=== PATIENT | female | born 1930 | race Caucasian/White ===

== ENCOUNTER 2016-10-10 14:24 | Observation (INO) | payer MEDICARE ==
--- NOTE | 2016-10-10 14:37 | ERPHSYRPT ---
- History of Present Illness Time Seen by Provider: 10/10/16 14:33 Source: patient, EMS Exam Limitations: no limitations Physician History: The patient is an 85-year-old female in [place]-collar brought in by ambulance from [facility] where she fell backwards while looking at jewelry in a window from the side walk. She tried to break her fall with her arms but still fell back hitting her head on the sidewalk, causing some bleeding from the back of her head. She denies neck pain. She denies loss of consciousness. Her past medical history is significant for a femur fracture, hypothyroidism. Occurred: just prior to arrival Reason for Fall: lost balance, fell from standing pos Injuries/Pain Location: head Loss of Consciousness: no loss of consciousness Quality: aching Severity of Pain-Max: mild Severity of Pain-Current: mild Modifying Factors: Improves With: nothing Associated Symptoms (Fall): headache, No neck pain Allergies/Adverse Reactions: desloratadine [From Clarinex-D 12 HOUR] Allergy (Verified 07/27/13 03:31) penicillin G Allergy (Verified 07/27/13 03:31) phenobarbital Allergy (Verified 07/27/13 03:31) procaine HCl [From Novocain] Allergy (Verified 07/27/13 03:31) pseudoephedrine sulfate [From Clarinex-D 12 HOUR] Allergy (Verified 07/27/13 03: 31) Home Medications: Levothyroxine Sodium 25 Mcg [Synthroid 25 Mcg] 25 mcg PO DAILY 07/27/13 [ History] Aspirin 81 mg PO DAILY 10/10/16 [History] Cholecalciferol (Vitamin D3) [Vitamin D] 1,000 unit PO WEEKLY 10/10/16 [ History] Hx Tetanus, Diphtheria Vaccination/Date Given: No Hx Influenza Vaccination/Date Given: No Hx Pneumococcal Vaccination/Date Given: No - Review of Systems Constitutional: No Fever, No Chills Eyes: No Symptoms Ears, Nose, & Throat: No Symptoms Respiratory: No Cough, No Dyspnea Cardiac: No Chest Pain, No Edema, No Syncope Abdominal/Gastrointestinal: No Abdominal Pain, No Nausea, No Vomiting, No Diarrhea Genitourinary Symptoms: No Dysuria Musculoskeletal: Fall, Injury Skin: Skin Lesions Neurological: Headache Psychological: No Symptoms Endocrine: No Symptoms Hematologic/Lymphatic: No Symptoms Immunological/Allergic: No Symptoms All Other Systems: Reviewed and Negative - Past Medical History Pertinent Past Medical History: Yes Endocrine Medical History: Hypothyroidism Musculoskeletal History: Fractures Other Medical History: crystals in right ear - Past Surgical History Past Surgical History: Yes Musculoskeletal: Orthopedic Surgery Other Surgical History: ear. eye implants - Social History Smoking Status: Never smoker Exposure to second hand smoke: No Drug Use: none Patient Lives Alone: Yes - Female History Hx Now: No - Nursing Vital Signs Nursing Vital Signs: Initial Vital Signs Temperature 98.5 F Temperature Source Oral Pulse Rate 93 Respiratory Rate 18 Blood Pressure [] 168/84 Pain Intensity 3 - [place] Coma Score Best Eye Response ([place]): (4) open spontaneously Best Verbal Response ([place]): (5) oriented Best Motor Response ([place]): (6) obeys commands [place] Total: 15 - Physical Exam General Appearance: no apparent distress, alert Head Injury: active bleeding, contusions, tenderness (occiput) Eye Exam: PERRL/EOMI ENT Exam: airway nml Neck Exam: normal inspection, No tenderness Respiratory/Chest Exam: normal breath sounds, No chest tenderness, No respiratory distress Cardiovascular Exam: normal heart sounds, regular rate/rhythm Gastrointestinal Exam: soft, No tenderness, No distention, No guarding, No ecchymosis Rectal Exam: not done Back Exam: normal inspection, No vertebral tenderness Extremity Exam: normal inspection, normal range of motion, pelvis stable, No deformities Neurologic Exam: alert, oriented x 3, cooperative, sensation nml, No motor deficits Skin Exam: normal color, warm, dry, laceration SpO2 Interpretation: normal Procedures - Laceration/Wound Repair Occipital Wound Location: head Wound Length (cm): 0.5 Wound's Depth, Shape: superficial, linear Wound Explored: clean Irrigated: Yes Hibiclens Prep: Yes Wound Repaired With: [place] Number of Sutures: 1 Layer Closure?: No - CT Exams Head CT Interpretation: Tele-radiologist Report, No Fracture (Per DR Painting) Cervical Spine CT Interpretation: Negative, No Fracture (Per Dr Painting) Ordered Tests: Active Orders 24 hr Category Date Time Status CERVICAL SPINE WO CONTRAST [CT] Stat Exams 10/10/16 14:38 Completed HEAD WITHOUT CONTRAST [CT] Stat Exams 10/10/16 14:38 Completed - Progress Progress: unchanged Progress Note: 10/10/16 15:41 Pt is now feeling nauseated. Discussed with : Eugene Will see patient in: hospital (observation) Counseled pt/family regarding: diagnosis, rad results - Departure Time of Disposition: 15:57 Departure Disposition: Observation (per Majo Otto) Clinical Impression: Head injury, closed, with concussion Condition: Stable Critical Care Time: No
--- NOTE | 2016-10-10 15:21 | XRAY ---
Indication: Posterior head injury following fall. Multiple contiguous axial images obtained through the head without contrast. Comparison: July 27, 2013. Stable age-appropriate global atrophy and minimal periventricular degenerative micro-ischemia. Again no acute intracranial hemorrhage, abnormal extra-axial fluid collection, or mass effect. Fourth ventricle is midline without hydrocephalus. Bony calvarium intact. Small posterior scalp hematoma near the vertex. Visualized paranasal sinuses clear. Again previous left mastoidectomy. Impression: Posterior scalp hematoma. No underlying fracture or acute intracranial abnormalities. Stable atrophy and degenerative micro-ischemia. CT DI 51.85
--- NOTE | 2016-10-10 15:24 | XRAY ---
Indication: Posterior head injury following fall. Multiple contiguous axial images obtained through the cervical spine. Sagittal and coronal reformatted images obtained. Comparison: July 27, 2013. Again the right C1 lamina is absent either postoperative or developmental. No acute fracture, suspicious bony lesions, or spinal canal stenosis. Stable multilevel bilateral degenerative facet hypertrophy. Sagittal and coronal reformatted images demonstrates stable minimal anterolisthesis of C4 on C5 on C6. Disc spaces maintained. No acute fracture or jumped facet. Normal-appearing craniocervical junction. Visualized noncontrasted soft tissues unremarkable. Stable biapical fibrosis/scarring. Impression: Stable nonacute CT cervical spine again with chronic features. CT DI 44.90
[2016-10-10] MEDS ORDERED: ZOFRAN ODT 4 MG PO ONE (15:43)
[2016-10-10] MEDS ORDERED: ZOFRAN ODT 4 MG ONE (15:56)
[2016-10-10] MEDS ORDERED: MORPHINE SULFATE 2 MG INJ IV PRN (16:56)
[2016-10-10] MEDS ORDERED: Zofran 4 MG/2 ML VIAL IV PRN (16:56)
[2016-10-10] MEDS: TYLENOL 325 MG PO PRN (19:25)
[2016-10-11] MEDS: TYLENOL 325 MG PO PRN ×2 (04:36→11:53)
[2016-10-11 07:09] VITALS: O2SAT 97
--- NOTE | 2016-10-11 08:22 | PCM.HP ---
History of Present Illness - Chief Complaint Chief Complaint: concussion Date: 10/11/16 History of Present Illness: is a 85 year old female. who was walking in flip flop shoes in a store on the [facility] when she stepped back on an incline losing her balance falling backward and hitting the back of her head resulting in confusion, nausea and laceration with copious bleeding. She still has a headache this am and her eyes are bothering her. She is walking well now and tolerating po well. - Review of Systems Constitutional: No Fever, No Chills Eyes: Eye Redness, Itchy, Foreign Body Sensation Ears, Nose, & Throat: No Symptoms, Sinus Drainage Respiratory: No Cough, No Short Of Breath Cardiac: No Chest Pain, No Edema, No Syncope Abdominal/Gastrointestinal: No Abdominal Pain, No Nausea, No Vomiting, No Diarrhea Genitourinary Symptoms: No Dysuria Musculoskeletal: No Back Pain, No Neck Pain Skin: No Rash Neurological: Headache, No Dizziness, No Focal Weakness, No Sensory Changes Psychological: No Symptoms Endocrine: No Symptoms Hematologic/Lymphatic: No Symptoms Immunological/Allergic: No Symptoms Medications & Allergies Home Medications: Home Medication List Levothyroxine Sodium 25 Mcg [Synthroid 25 Mcg] 25 mcg PO DAILY 07/27/13 [ History Confirmed 10/10/16] Aspirin 81 mg PO DAILY 10/10/16 [History Confirmed 10/10/16] Cholecalciferol (Vitamin D3) [Vitamin D] 1,000 unit PO WEEKLY 10/10/16 [ History Confirmed 10/10/16] Dextran 70/Hypromellose [Artificial Tears Eye Drops] 15 ml OP QID PRN PRN [History Confirmed 10/10/16] [place]-3/Dha/Epa/Fish Oil [Fish Oil 1,600 mg/5 ml Liquid] 5 ml PO DAILY 10/10/16 [History Confirmed 10/10/16] Allergies/Adverse Reactions: Allergies Allergy/AdvReac Type Severity Reaction Status Date / Time desloratadine Allergy Verified 10/10/16 16:59 [From Clarinex-D 12 HOUR] penicillin G Allergy Verified 10/10/16 16:59 phenobarbital Allergy Verified 10/10/16 16:59 procaine HCl [From Novocain] Allergy Verified 05/15/17 16:59 pseudoephedrine sulfate Allergy Verified 10/10/16 16:59 [From Clarinex-D 12 HOUR] - Past Medical History Past Medical History: Yes Neurological History: No Pertinent History ENT History: Cataracts Cardiac History: No Pertinent History Respiratory History: No Pertinent History Endocrine Medical History: Hypothyroidism Musculoskelatal History: Fractures GI Medical History: Irritable Bowel History: No Pertinent History Pyscho-Social History: No Pertinent History Reproductive Disorders: No Pertinent History Comment: crystals in right ear - Female History Are you now?: No - Past Surgical History Past Surgical History: Yes Neuro Surgical History: No Pertinent History Cardiac History: No Pertinent History Respiratory Surgery: No Pertinent History GI Surgical History: No Pertinent History Genitourinary Surgical Hx: No Pertinent History Musculskeletal Surgical Hx: Orthopedic Surgery Female Surgical History: No Pertinent History Other Surgical History: ear. eye implants. tibia/fibia - Social History Smoking Status: Never smoker Exposure to second hand smoke: No Alcohol: None Drug Use: none - Physical Exam Vital Signs: Vital Signs - 24 hr Temp Pulse Resp BP Pulse Ox 10/11/16 07:09 97.9 F 73 18 145/63 97 10/11/16 05:22 165/72 10/11/16 04:00 97.1 F 71 19 191/82 100 10/11/16 00:00 98.2 F 70 16 128/65 100 10/10/16 19:59 97.7 F 73 20 188/74 93 L 10/10/16 17:09 97.7 F 73 20 182/79 93 L 10/10/16 16:15 74 18 154/82 96 10/10/16 14:25 98.5 F 93 H 18 168/84 96 General Appearance: no apparent distress, alert Neurologic Exam: alert, oriented x 3, cooperative, normal mood/affect, nml cerebellar function, nml station & gait, sensation nml, No motor deficits Eye Exam: PERRL/EOMI, eyes nml inspection Ears, Nose, Throat Exam: normal ENT inspection, TMs normal, pharynx normal, moist mucous membranes Neck Exam: normal inspection, non-tender, supple, full range of motion Respiratory Exam: normal breath sounds, lungs clear, No respiratory distress Cardiovascular Exam: regular rate/rhythm, normal heart sounds, normal peripheral pulses Gastrointestinal/Abdomen Exam: soft, normal bowel sounds, No tenderness, No mass Back Exam: normal inspection, normal range of motion, No CVA tenderness, No vertebral tenderness Extremity Exam: normal inspection, normal range of motion, pelvis stable Skin Exam: normal color, warm, dry, other (clean dry laceration with 1 staple in the posterior scalp), No rash Lymphatic Exam: No adenopathy Assessment/Plan (1) Head injury, closed, with concussion Status: Acute Qualifiers: Encounter type: initial encounter Assessment & Plan: she was observed as she lives alone and was feeling nauseated and severe headache after the fall. she has done well overnight and is walking and eating well with no difficulty will d/c to home f/u in 1 week for staple removal discussed concussion precautions Code(s): S06.0X9A - CONCUSSION W LOSS OF CONSCIOUSNESS OF UNSP DURATION, INIT (2) Scalp laceration Status: Acute Qualifiers: Encounter type: initial encounter Qualified Code(s): S01.01XA - Laceration without foreign body of scalp, initial encounter
--- NOTE | 2016-10-11 08:23 | PCM.DCORD ---
- Discharge Discharge Date: 10/11/16 Disposition: Home, Self-Care Condition: Stable Prescriptions: Continue Levothyroxine Sodium 25 Mcg [Synthroid 25 Mcg] 25 mcg PO DAILY Aspirin 81 mg PO DAILY Cholecalciferol (Vitamin D3) [Vitamin D] 1,000 unit PO WEEKLY Dextran 70/Hypromellose [Artificial Tears Eye Drops] 15 ml OP QID PRN PRN PRN Reason: Allergies [place]-3/Dha/Epa/Fish Oil [Fish Oil 1,600 mg/5 ml Liquid] 5 ml PO DAILY Follow up with: ADELINA KUO [Primary Care Provider] -
[2016-10-11] MEDS ORDERED: Artificial Tears 15 ML OP PRN (08:24)
[2016-10-11] MEDS ORDERED: NON-FORMULARY ITEM (Aspirin [Aspirin] 81 MG) PO SCH (10:00)
[2016-10-11] MEDS ORDERED: VITAMIN D PO SCH (10:00)
[2016-10-11] MEDS ORDERED: SYNTHROID 25 MCG PO SCH (10:00)
[2016-10-11] MEDS ORDERED: ECOTRIN 81 MG PO SCH (10:00)
[2016-10-11 11:21] VITALS: BP 142/84; PULSE 86
== END 2016-10-11 12:25 | disposition home or self-care (01) ==
LOC: ED 14:24 → MED SURG 16:50
PROVIDERS: ADMIT Family Medicine; ATTEND Family Medicine
DX: S06.0X9A Concussion with loss of consciousness of unspecified duration, initial encounter (principal); S01.01XA Laceration without foreign body of scalp, initial encounter; W01.198A Fall on same level from slipping, tripping and stumbling with subsequent striking against other object, initial encounter; Y93.89 Activity, other specified; Y92.512 Supermarket, store or market as the place of occurrence of the external cause; Y99.8 Other external cause status
CPT/HCPCS: 36000; 70450; 72125; 99285; G0378; Q0162; A9270-GY

== ENCOUNTER 2016-10-29 11:31 | Emergency (ER) | payer MEDICARE, OTHER ==
--- NOTE | 2016-10-29 11:53 | ERPHSYRPT ---
- History of Present Illness Time Seen by Provider: 10/29/16 11:48 Source: patient Exam Limitations: no limitations Patient Subjective Stated Complaint: congestion Triage Nursing Assessment: states fell several weeks and for past several days has had congestion to lt nasal area. and redness noted to lt sclera. states has vision changes 'normal but both eyes sometimes have trouble seeing' post. head tenderness. denies no new injury. alert/oriented. skin warm and dry Physician History: The patient is an 86-year-old female who has a bloodshot eye for the past week. Her eye stings. She is been increasingly unsteady on her feet since falling and hitting her head October 10. Her blood pressure is been slightly elevated also since that time. She denies any other problems. Her past medical history significant for a recent fall causing head trauma, hypothyroidism. Timing/Duration: week(s) (1) Location: left eye Severity: moderate Apparent Injury: no Associated Symptoms: itching, redness Chemical Exposure: No Trauma: Yes (head injury October 10) [place]anning [employer] Exposure: No Allergies/Adverse Reactions: desloratadine [From Clarinex-D 12 HOUR] Allergy (Verified 10/29/16 11:48) penicillin G Allergy (Verified 10/29/16 11:48) phenobarbital Allergy (Verified 10/29/16 11:48) procaine HCl [From Novocain] Allergy (Verified 10/29/16 11:48) pseudoephedrine sulfate [From Clarinex-D 12 HOUR] Allergy (Verified 10/29/16 11: 48) Home Medications: Levothyroxine Sodium 25 Mcg [Synthroid 25 Mcg] 25 mcg PO DAILY 07/27/13 [ History] Aspirin 81 mg PO DAILY 10/10/16 [History] Cholecalciferol (Vitamin D3) [Vitamin D] 1,000 unit PO WEEKLY 10/10/16 [ History] Dextran 70/Hypromellose [Artificial Tears Eye Drops] 15 ml OP QID PRN PRN [History] [place]-3/Dha/Epa/Fish Oil [Fish Oil 1,600 mg/5 ml Liquid] 5 ml PO DAILY 10/10/16 [History] Hx Tetanus, Diphtheria Vaccination/Date Given: Yes Hx Influenza Vaccination/Date Given: No Hx Pneumococcal Vaccination/Date Given: No Immunizations Up to Date: Yes - Review of Systems Constitutional: No Fever, No Chills Eyes: Eye Redness Ears, Nose, & Throat: No Symptoms Respiratory: No Cough, No Dyspnea Cardiac: No Chest Pain, No Edema, No Syncope Abdominal/Gastrointestinal: No Abdominal Pain, No Nausea, No Vomiting, No Diarrhea Genitourinary Symptoms: No Dysuria Musculoskeletal: No Back Pain, No Neck Pain Skin: No Rash Neurological: Other (Unsteady on feet) Psychological: No Symptoms Endocrine: No Symptoms Hematologic/Lymphatic: No Symptoms Immunological/Allergic: No Symptoms All Other Systems: Reviewed and Negative - Past Medical History Pertinent Past Medical History: Yes Neurological History: No Pertinent History ENT History: Cataracts Cardiac History: No Pertinent History Respiratory History: No Pertinent History Endocrine Medical History: Hypothyroidism Musculoskeletal History: Fractures GI Medical History: Irritable Bowel History: No Pertinent History Psycho-Social History: No Pertinent History Female Reproductive Disorders: No Pertinent History Other Medical History: slight [place]--lt ear worse - Past Surgical History Past Surgical History: Yes Neuro Surgical History: No Pertinent History Cardiac: No Pertinent History Respiratory: No Pertinent History Gastrointestinal: No Pertinent History Genitourinary: No Pertinent History Musculoskeletal: Orthopedic Surgery Female Surgical History: No Pertinent History Other Surgical History: ear. eye implants. tibia/fibia - Social History Smoking Status: Never smoker Exposure to second hand smoke: No Drug Use: none Patient Lives Alone: No - Female History Hx Now: No - Nursing Vital Signs Nursing Vital Signs: Initial Vital Signs Temperature 97.1 F Temperature Source Oral Pulse Rate 86 Respiratory Rate 18 Blood Pressure [Right Arm] 169/67 Pain Intensity 2 - Physical Exam General Appearance: no apparent distress Eye Exam: right eye: normal inspection, left eye: conjunctival hemorrhage, bilateral eye: PERRL Ears, Nose, Throat Exam: normal ENT inspection Neck Exam: normal inspection Respiratory Exam: normal breath sounds Cardiovascular Exam: regular rate/rhythm Gastrointestinal Exam: soft Extremity Exam: normal inspection Neurologic: alert Skin Exam: normal color SpO2 Interpretation: normal SpO2: 96 Oxygen Delivery: Room Air - CT Exams Head CT Interpretation: Negative (stable non acute senile brain per Dr Painting.), Tele- radiologist Report Ordered Tests: Active Orders 24 hr Category Date Time Status Visual Acuity STAT Care 10/29/16 11:58 Active HEAD WITHOUT CONTRAST [CT] Stat Exams 10/29/16 11:54 Taken - Progress Progress: unchanged Counseled pt/family regarding: diagnosis, rad results - Departure Time of Disposition: 12:41 Departure Disposition: Home Clinical Impression: Conjunctival hemorrhage of left eye Condition: Stable Critical Care Time: No Additional Instructions: You have a hemorrhage of the conjunctiva in her left eye. This will resolve. If it does not improve within 2 or 3 more days, please see an welfare supervisor. The head CT was unchanged from the previous head CT done in September. Please follow- up with your family doctor or a neurologist for further evaluation of your recent unsteadiness.
[2016-10-29 14:01] VITALS: BP 180/80; PULSE 88; O2SAT 97
--- NOTE | 2016-10-29 16:05 | XRAY ---
Indication: Left eye pain following injury October 10. Multiple contiguous axial images obtained through the head without contrast. Comparison: October 10, 2016. Stable age-appropriate global atrophy and minimal periventricular degenerative micro-ischemia. Again no acute intracranial hemorrhage, abnormal extra-axial fluid collection, or mass effect. Fourth ventricle is midline without hydrocephalus. Bony calvarium intact. Orbits including roof, [place], and floors intact. Visualized paranasal sinuses clear. Again previous left mastoidectomy. Impression: Stable nonacute senile brain. CT DI 51.70
== END 2016-10-29 14:01 | disposition home or self-care (01) ==
LOC: ED 11:31
DX: H11.32 Conjunctival hemorrhage, left eye (principal); S00.93XA Contusion of unspecified part of head, initial encounter; W19.XXXA Unspecified fall, initial encounter
CPT/HCPCS: 70450; 99283; 99284

== ENCOUNTER 2018-10-24 14:09 | Observation (INO) | payer MEDICARE, OTHER ==
[2018-10-24 14:49] LABS: BASOPHIL % 0.4 % (0.0-0.4); Basophil (Absolute #) 0.03 (0-0.4); Eosinophil % 2.3 % (0.00-5.0); Eosinophil (Absolute #) 0.19 (0-0.5); Granulocyte Absolute (ANC) 4.97 (1.4-6.9); Granulocytes % 59.5 % (36.0-66.0); Hematocrit 41.6 % (35-47); Lymphocyte (Absolute #) 2.49 (1.0-4.6); Lymphocytes % 29.9 % (24.0-44.0); Mean Corpuscular Hemoglobin 30.3 pg (26-32); Mean Corpuscular Hgb Concent. 33.7 g/dl (32-36); Mean Platelet Volume 10.8 fl (6-9.5); Monocyte (Absolute #) 0.66 (0.0-1.3); Monocytes % 7.9 % (0.0-12.0); Platelet Count 242 K/mm3 (150-450); Red Blood Count 4.62 M/mm3 (4.1-5.4); White Blood Count 8.3 K/mm3 (4.0-10.5)
--- NOTE | 2018-10-24 14:51 | ERPHSYRPT ---
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 Arrives with complaint that she had a sensation where she didn't know that her right arm was there she states she's not had any problems moving or speaking she does state that she is felt like her arm was and there She apparently is seeing [employer] this morning secondary to problems with her right ear but neglected to tell her what was going on she states she had a second episode of where she felt like she didn't know her right arm was there yesterday as well as around noon today she is unsure of the duration. She states she sometimes has trouble getting her words out. Currently the patient is very verbose she is alert oriented x3 and she is not having any problems moving anything. Past medical history includes cataracts, hypothyroidism, fractures, irritable bowel, hard of hearing Past surgical history includes tumor removed in her ear (right), IM plan, tibia- fibula Timing/Duration: yesterday Severity: moderate Modifying Factors: Improves With: nothing Associated Symptoms: other (had period of time when she could not feel her right arm and was not sure was there and trouble getting her words out around noon), No nausea, No vomiting, No abdominal pain, No shortness of breath, No heartburn, No diaphoresis, No cough, No chills, No chest pain, No fever, No headaches, No loss of appetite, No malaise, No rash, No syncope, No seizure, No weakness Allergies/Adverse Reactions: almond Allergy (Verified 10/24/18 15:18) chlorpheniramine [From Chlor-Trimeton] Allergy (Verified 10/24/18 15:18) desloratadine [From Clarinex-D 12 HOUR] Allergy (Verified 10/29/16 11:48) erythromycin base Allergy (Verified 10/24/18 15:18) nickel Allergy (Verified 10/24/18 15:18) penicillin G Allergy (Verified 10/29/16 11:48) phenobarbital Allergy (Verified 10/29/16 11:48) pistachio nut Allergy (Verified 10/24/18 15:18) prednisone Allergy (Verified 10/24/18 15:18) procaine HCl [From Novocain] Allergy (Verified 10/29/16 11:48) pseudoephedrine sulfate [From Clarinex-D 12 HOUR] Allergy (Verified 10/29/16 11: 48) Sulfa (Sulfonamide Antibiotics) Allergy (Verified 10/24/18 15:18) Home Medications: Levothyroxine Sodium 25 Mcg [Synthroid 25 Mcg] 25 mcg PO DAILY 07/27/13 [ History] Aspirin 81 mg PO DAILY 10/10/16 [History] Cholecalciferol (Vitamin D3) [Vitamin D] 1,000 unit PO WEEKLY 10/10/16 [ History] Dextran 70/Hypromellose [Artificial Tears Eye Drops] 15 ml OP QID PRN PRN [History] [place]-3/Dha/Epa/Fish Oil [Fish Oil 1,600 mg/5 ml Liquid] 5 ml PO DAILY 10/10/16 [History] Hx Tetanus, Diphtheria Vaccination/Date Given: Yes Hx Influenza Vaccination/Date Given: No Hx Pneumococcal Vaccination/Date Given: No - Review of Systems Eyes: No Symptoms Ears, Nose, & Throat: No Symptoms Respiratory: No Cough, No Dyspnea Cardiac: No Chest Pain, No Edema, No Syncope Abdominal/Gastrointestinal: No Abdominal Pain, No Nausea, No Vomiting, No Diarrhea Genitourinary Symptoms: No Dysuria Musculoskeletal: No Back Pain, No Neck Pain Skin: No Rash Neurological: Other (period of timewhen patient could not get her words out and felt like she was having numbness and unaware of her right arm around noon today ) Psychological: No Symptoms Endocrine: No Symptoms All Other Systems: Reviewed and Negative - Past Medical History Pertinent Past Medical History: Yes Neurological History: No Pertinent History ENT History: Cataracts Cardiac History: No Pertinent History Respiratory History: No Pertinent History Endocrine Medical History: Hypothyroidism Musculoskeletal History: Fractures GI Medical History: Irritable Bowel History: No Pertinent History Psycho-Social History: No Pertinent History Female Reproductive Disorders: No Pertinent History Other Medical History: slight [place]--lt ear worse - Past Surgical History Past Surgical History: Yes Neuro Surgical History: No Pertinent History Cardiac: No Pertinent History Respiratory: No Pertinent History Gastrointestinal: No Pertinent History Genitourinary: No Pertinent History Musculoskeletal: Orthopedic Surgery Female Surgical History: No Pertinent History Other Surgical History: ear. eye implants. tibia/fibia - Social History Smoking Status: Never smoker Exposure to second hand smoke: No Drug Use: none Patient Lives Alone: No - Nursing Vital Signs Nursing Vital Signs: Initial Vital Signs Temperature 98.1 F 10/24/18 14:53 Pulse Rate 68 10/24/18 14:53 Respiratory Rate 16 10/24/18 14:53 Blood Pressure 182/75 10/24/18 14:53 O2 Sat by Pulse Oximetry 96 10/24/18 14:53 Pain Scale Pain Intensity 3 - Physical Exam General Appearance: no apparent distress, alert Eye Exam: PERRL/EOMI, eyes nml inspection Ears, Nose, Throat Exam: normal ENT inspection, TMs normal, pharynx normal, moist mucous membranes Neck Exam: normal inspection, non-tender, supple, full range of motion Respiratory Exam: normal breath sounds, lungs clear, No respiratory distress Cardiovascular Exam: regular rate/rhythm, normal heart sounds, normal peripheral pulses, capillary refill <2 sec Gastrointestinal/Abdomen Exam: soft, normal bowel sounds, No tenderness, No mass Back Exam: normal inspection, normal range of motion, No CVA tenderness, No vertebral tenderness Extremity Exam: normal inspection, normal range of motion, pelvis stable Neurologic Exam: alert, oriented x 3, cooperative, sheet tailer II-XII nml as tested, normal mood/affect, nml cerebellar function, nml station & gait, sensation nml, other (patient alert, oriented x3, cranial nerves II through XII intact, normal speech, normal finger to nose, machine stapler equal and symmetrical 5 over 5, no pronator drift, no facial droop, GCS equals 15,, full range of motion all extremities, sensation intact to all extremities), No motor deficits, No sensory deficit, No disoriented, No confusion, No agitation Skin Exam: normal color, warm, dry, No rash Lymphatic Exam: No adenopathy SpO2 Interpretation: normal - Course Nursing assessment & vital signs reviewed: Yes EKG Interpreted by Me: RATE (68 bpm), NORMAL AXIS, Other (EKG: Sinus arrhythmia , 68 beats per minute, normal axis, no acute ST or T wave changes) - Radiology Exams Chest X-ray Interpretation: Discussed w/ radiologist (chest x-ray: Impression: Stable nonacute chest with chronic features) - CT Exams Head CT Interpretation: Discussed w/radiologist (head CT: Impression: 1. Stable nonacute senile brain. Followup CT or MRI may yield further information if she remains further clinical concern.. 2. Stable left mastoidectomy with opacification. 3. New partial opacification of right mastoid air cells presumed inflammatory) Ordered Tests: Active Orders 24 hr Category Date Time Status Log Preparer STAT Care 10/24/18 14:37 Active EKG-ER Only STAT Care 10/24/18 14:37 Active IV Insertion STAT Care 10/24/18 14:37 Active NPO (ED) STAT Care 10/24/18 14:37 Active CHEST 1 VIEW (PORTABLE) Stat Exams 10/24/18 14:37 Completed HEAD WITHOUT CONTRAST [CT] Stat Exams 10/24/18 14:37 Completed BMP Stat Lab 10/24/18 14:37 Completed CBC W DIFF Stat Lab 10/24/18 14:37 Completed PROTIME WITH INR Stat Lab 10/24/18 14:37 Completed PTT Stat Lab 10/24/18 14:37 Completed TROPONIN Q3H Lab 10/24/18 14:37 Completed TROPONIN Q3H Lab 10/24/18 17:45 Ordered TROPONIN Q3H Lab 10/24/18 20:45 Ordered TROPONIN Q3H Lab 10/24/18 23:45 Ordered TROPONIN Q3H Lab 10/25/18 02:45 Ordered UA W/RFX UR CULTURE Stat Lab 10/24/18 15:10 Completed Medication Summary Generic Name Dose Route Start Last Admin Trade Name Freq PRN Reason Stop Dose Admin Aspirin 324 mg 10/24/18 15:41 Baby Aspirin 81 Mg Chew PO 10/24/18 15:42 STAT ONE Lab/Rad Data: Laboratory Result Diagrams 10/24/18 14:37 10/24/18 14:37 Laboratory Results 10/24/18 10/24/18 10/24/18 Range/Units 15:10 14:37 14:37 WBC (4.0-10.5) K/mm3 RBC (4.1-5.4) M/mm3 Hgb (12.0-16.0) gm/dl Hct (35-47) % MCV (78-100) fl MCH (26-32) pg MCHC (32-36) g/dl RDW (11.5-14.0) % Plt Count (150-450) K/mm3 MPV (6-9.5) fl Gran % (36.0-66.0) % Eos # (Auto) (0-0.5) Absolute Lymphs (auto) (1.0-4.6) Absolute Monos (auto) (0.0-1.3) Lymphocytes % (24.0-44.0) % Monocytes % (0.0-12.0) % Eosinophils % (0.00-5.0) % Basophils % (0.0-0.4) % Absolute Granulocytes (1.4-6.9) Basophils # (0-0.4) PT 11.7 (9.95-12.35) SECONDS INR 1.01 (0.8-3.0) APTT 36.2 (25.3-37.0) SECONDS Sodium (137-145) mmol/L Potassium (3.5-5.1) mmol/L Chloride (98-107) mmol/L Carbon Dioxide (22-30) mmol/L Anion Gap (5-15) MEQ/L BUN (7-17) mg/dL Creatinine (0.52-1.04) mg/dL Estimated GFR ML/MIN Glucose (74-106) mg/dL Calcium (8.4-10.2) mg/dL Troponin I < 0.012 (0.000-0.034) ng/mL Urine Color YELLOW (YELLOW) Urine Appearance CLEAR (CLEAR) Urine pH 6.0 (5-6) Ur Specific [place] 1.012 (1.005-1.025) Urine Protein NEGATIVE (Negative) Urine Ketones NEGATIVE (NEGATIVE) Urine Blood NEGATIVE (0-5) Uche/ul Urine Nitrite NEGATIVE (NEGATIVE) Urine Bilirubin NEGATIVE (NEGATIVE) Urine Urobilinogen NEGATIVE (0-1) mg/dL Ur Leukocyte Esterase NEGATIVE (NEGATIVE) Urine WBC (Auto) 3-5 (0-5) /HPF Urine RBC (Auto) NONE (0-2) /HPF U Epithel Cells (Auto) NONE (FEW) /HPF Urine Bacteria (Auto) NONE (NEGATIVE) /HPF Urine Culture Reflexed NO (NO) Urine Glucose NEGATIVE (NEGATIVE) mg/dL 10/24/18 10/24/18 Range/Units 14:37 14:37 WBC 8.3 (4.0-10.5) K/mm3 RBC 4.62 (4.1-5.4) M/mm3 Hgb 14.0 (12.0-16.0) gm/dl Hct 41.6 (35-47) % MCV 90.0 (78-100) fl MCH 30.3 (26-32) pg MCHC 33.7 (32-36) g/dl RDW 14.0 (11.5-14.0) % Plt Count 242 (150-450) K/mm3 MPV 10.8 H (6-9.5) fl Gran % 59.5 (36.0-66.0) % Eos # (Auto) 0.19 (0-0.5) Absolute Lymphs (auto) 2.49 (1.0-4.6) Absolute Monos (auto) 0.66 (0.0-1.3) Lymphocytes % 29.9 (24.0-44.0) % Monocytes % 7.9 (0.0-12.0) % Eosinophils % 2.3 (0.00-5.0) % Basophils % 0.4 (0.0-0.4) % Absolute Granulocytes 4.97 (1.4-6.9) Basophils # 0.03 (0-0.4) PT (9.95-12.35) SECONDS INR (0.8-3.0) APTT (25.3-37.0) SECONDS Sodium 139 (137-145) mmol/L Potassium 4.3 (3.5-5.1) mmol/L Chloride 105 (98-107) mmol/L Carbon Dioxide 24 (22-30) mmol/L Anion Gap 13.9 (5-15) MEQ/L BUN 26 H (7-17) mg/dL Creatinine 1.11 H (0.52-1.04) mg/dL Estimated GFR 49.3 ML/MIN Glucose 99 (74-106) mg/dL Calcium 10.0 (8.4-10.2) mg/dL Troponin I (0.000-0.034) ng/mL Urine Color (YELLOW) Urine Appearance (CLEAR) Urine pH (5-6) Ur Specific [place] (1.005-1.025) Urine Protein (Negative) Urine Ketones (NEGATIVE) Urine Blood (0-5) Uche/ul Urine Nitrite (NEGATIVE) Urine Bilirubin (NEGATIVE) Urine Urobilinogen (0-1) mg/dL Ur Leukocyte Esterase (NEGATIVE) Urine WBC (Auto) (0-5) /HPF Urine RBC (Auto) (0-2) /HPF U Epithel Cells (Auto) (FEW) /HPF Urine Bacteria (Auto) (NEGATIVE) /HPF Urine Culture Reflexed (NO) Urine Glucose (NEGATIVE) mg/dL - Progress Progress: improved Progress Note: 10/24/18 15:45 This is a 87-year-old white female who arrives with complaint of sensation as if her right arm was not there which occurred yesterday at noon occurred today at noon again she states that she had some problems getting her words out. She states that she was seen by Liliana Ramos today for her problems however she neglected to tell the patient of her symptoms she had yesterday. On arrival patient is alert oriented x3 she is in no acute distress vitals are stable. EKG sinus arrhythmia at 60 beats per minute normal axis no acute ST or T wave changes are noted chest x-ray stable nonacute chest with chronic feature CT of the head remarkable for stable nonacute senile brain, stable left mastoidectomy with opacification and new partial opacification of the right mastoid air cells presumed inflammatory Patient with a normal neurologic exam speech is very clear and patient is very verbose she has no focal neurologic deficits. Patient's CBC CMP are within normal limits. I've discussed the case with Dr. Albright who is sales consultant insurance for Dr. Brenner. Will go ahead and place patient on aspirin [address] her on observation telemetry. With every 4 hour neurologic checks. Impression TIA. - Departure Departure Disposition: Observation Clinical Impression: TIA (transient ischemic attack) Condition: Fair Critical Care Time: No Referrals: ADELINA RAMOS [Primary Care Provider] -
[2018-10-24 14:56] LABS: INR 1.01 (0.8-3.0); PROTIME 11.7 SECONDS (9.95-12.35)
[2018-10-24 14:58] LABS: PTT 36.2 SECONDS (25.3-37.0)
[2018-10-24 15:00] LABS: ANION GAP 13.9 MEQ/L (5-15); Creatinine 1 1.11 mg/dL (0.52-1.04); Potassium 4.3 mmol/L (3.5-5.1)
--- NOTE | 2018-10-24 15:14 | XRAY ---
Indication: Right facial numbness. Multiple contiguous axial images obtained through the head without contrast. Comparison: October 29, 2016. Stable age-appropriate global atrophy and minimal periventricular degenerative micro-ischemia bilaterally. No acute intracranial hemorrhage, abnormal extra-axial fluid collection, or mass effect. Fourth ventricle is midline without hydrocephalus. Wu-white matter differentiation preserved. Bony calvarium intact. Again left mastoidectomy with opacification of the remnant mastoid air cells. There is now partial opacification of the right mastoid air cells. Impression: 1. Stable nonacute senile brain. Follow-up CT or MRI may yield further information if there remains further clinical concern. 2. Stable left mastoidectomy with opacification. 3. New partial opacification of the right mastoid air cells presumed inflammatory. CT DI 70.00
[2018-10-24 15:16] LABS: Appearance CLEAR (CLEAR); Bilirubin NEGATIVE (NEGATIVE); Blood NEGATIVE Ery/ul (0-5); Glucose NEGATIVE (NEGATIVE); Ketones NEGATIVE (NEGATIVE); Leukocyte Esterase NEGATIVE (NEGATIVE); Nitrite NEGATIVE (NEGATIVE); Protein,Urine Dip NEGATIVE (Negative); Specific Gravity 1.012 (1.005-1.025); Urobilinogen NEGATIVE mg/dL (0-1)
--- NOTE | 2018-10-24 15:18 | XRAY ---
Indication: Numbness. Comparison: August 14, 2018. Portable chest remains clear. Heart is not enlarged again with arteriosclerotic and tortuous aorta. Bony thorax intact again with osteopenia and degenerative changes. Impression: Stable nonacute chest with chronic features.
[2018-10-24] MEDS ORDERED: BABY ASPIRIN 81 MG CHEW PO ONE (15:41)
[2018-10-24] MEDS ORDERED: BABY ASPIRIN 81 MG CHEW ONE (15:45)
[2018-10-24] MEDS ORDERED: DEXTRAN OP PRN (17:18)
[2018-10-24] MEDS ORDERED: HYPROMELLOSE OP PRN (17:18)
[2018-10-24] MEDS ORDERED: Artificial Tears 15 ML OP PRN (17:22)
[2018-10-24] MEDS: SYNTHROID 25 MCG PO SCH (17:44)
[2018-10-24] MEDS: FISH OIL 1,000 MG CAPSULE PO SCH (17:45)
--- NOTE | 2018-10-24 17:54 | PCM.NOTE ---
Date and Time: 10/24/181745 Subjective Assessment: Patient is stable since admit from ER . Neuro checks are negative. 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 She gives a Hx of head trauma 2013 when she fell down 11 steps backwards and hit the top of her head on a concrete wall. Her right arm paresthesas may be related to DDD or DJD in the neck. C-spine xray ordered. Continue neuro checks and increased dose baby ASA for 1/day to 3/day.Dr Brenner will be seeing patient in the morning. OBJECTIVE DATA Vital Signs: Vital Signs - 24 hr Temp Pulse Resp BP Pulse Ox 10/24/18 16:56 97 10/24/18 16:22 97.8 F 89 18 158/88 94 L 10/24/18 16:16 97.8 F 89 18 158/88 94 L 10/24/18 16:13 98 10/24/18 15:58 158/74 10/24/18 15:33 156/74 10/24/18 14:53 98.1 F 68 16 182/75 96 Pain Assessment - Last Documented Pain Intensity 3 Pain Scale Used 0-10 Pain Scale Intake and Output: Intake & Output 10/22/18 10/23/18 10/24/18 10/25/18 11:59 11:59 11:59 11:59 Intake Total 240 Balance 240 Weight 56.699 kg Lab Results: Lab Results-Last 24 Hours 10/24/18 10/24/18 10/24/18 Range/Units 14:37 14:37 14:37 WBC 8.3 (4.0-10.5) K/mm3 RBC 4.62 (4.1-5.4) M/mm3 Hgb 14.0 (12.0-16.0) gm/dl Hct 41.6 (35-47) % MCV 90.0 (78-100) fl MCH 30.3 (26-32) pg MCHC 33.7 (32-36) g/dl RDW 14.0 (11.5-14.0) % Plt Count 242 (150-450) K/mm3 MPV 10.8 H (6-9.5) fl Gran % 59.5 (36.0-66.0) % Eos # (Auto) 0.19 (0-0.5) Absolute Lymphs (auto) 2.49 (1.0-4.6) Absolute Monos (auto) 0.66 (0.0-1.3) Lymphocytes % 29.9 (24.0-44.0) % Monocytes % 7.9 (0.0-12.0) % Eosinophils % 2.3 (0.00-5.0) % Basophils % 0.4 (0.0-0.4) % Absolute Granulocytes 4.97 (1.4-6.9) Basophils # 0.03 (0-0.4) PT (9.95-12.35) SECONDS INR (0.8-3.0) APTT (25.3-37.0) SECONDS Sodium 139 (137-145) mmol/L Potassium 4.3 (3.5-5.1) mmol/L Chloride 105 (98-107) mmol/L Carbon Dioxide 24 (22-30) mmol/L Anion Gap 13.9 (5-15) MEQ/L BUN 26 H (7-17) mg/dL Creatinine 1.11 H (0.52-1.04) mg/dL Estimated GFR 49.3 ML/MIN Glucose 99 (74-106) mg/dL Calcium 10.0 (8.4-10.2) mg/dL Troponin I < 0.012 (0.000-0.034) ng/mL Urine Color (YELLOW) Urine Appearance (CLEAR) Urine pH (5-6) Ur Specific [place] (1.005-1.025) Urine Protein (Negative) Urine Ketones (NEGATIVE) Urine Blood (0-5) Uche/ul Urine Nitrite (NEGATIVE) Urine Bilirubin (NEGATIVE) Urine Urobilinogen (0-1) mg/dL Ur Leukocyte Esterase (NEGATIVE) Urine WBC (Auto) (0-5) /HPF Urine RBC (Auto) (0-2) /HPF U Epithel Cells (Auto) (FEW) /HPF Urine Bacteria (Auto) (NEGATIVE) /HPF Urine Culture Reflexed (NO) Urine Glucose (NEGATIVE) mg/dL 10/24/18 10/24/18 Range/Units 14:37 15:10 WBC (4.0-10.5) K/mm3 RBC (4.1-5.4) M/mm3 Hgb (12.0-16.0) gm/dl Hct (35-47) % MCV (78-100) fl MCH (26-32) pg MCHC (32-36) g/dl RDW (11.5-14.0) % Plt Count (150-450) K/mm3 MPV (6-9.5) fl Gran % (36.0-66.0) % Eos # (Auto) (0-0.5) Absolute Lymphs (auto) (1.0-4.6) Absolute Monos (auto) (0.0-1.3) Lymphocytes % (24.0-44.0) % Monocytes % (0.0-12.0) % Eosinophils % (0.00-5.0) % Basophils % (0.0-0.4) % Absolute Granulocytes (1.4-6.9) Basophils # (0-0.4) PT 11.7 (9.95-12.35) SECONDS INR 1.01 (0.8-3.0) APTT 36.2 (25.3-37.0) SECONDS Sodium (137-145) mmol/L Potassium (3.5-5.1) mmol/L Chloride (98-107) mmol/L Carbon Dioxide (22-30) mmol/L Anion Gap (5-15) MEQ/L BUN (7-17) mg/dL Creatinine (0.52-1.04) mg/dL Estimated GFR ML/MIN Glucose (74-106) mg/dL Calcium (8.4-10.2) mg/dL Troponin I (0.000-0.034) ng/mL Urine Color YELLOW (YELLOW) Urine Appearance CLEAR (CLEAR) Urine pH 6.0 (5-6) Ur Specific [place] 1.012 (1.005-1.025) Urine Protein NEGATIVE (Negative) Urine Ketones NEGATIVE (NEGATIVE) Urine Blood NEGATIVE (0-5) Uche/ul Urine Nitrite NEGATIVE (NEGATIVE) Urine Bilirubin NEGATIVE (NEGATIVE) Urine Urobilinogen NEGATIVE (0-1) mg/dL Ur Leukocyte Esterase NEGATIVE (NEGATIVE) Urine WBC (Auto) 3-5 (0-5) /HPF Urine RBC (Auto) NONE (0-2) /HPF U Epithel Cells (Auto) NONE (FEW) /HPF Urine Bacteria (Auto) NONE (NEGATIVE) /HPF Urine Culture Reflexed NO (NO) Urine Glucose NEGATIVE (NEGATIVE) mg/dL Radiology Exams: Radiology Procedures Category Date Time Status CHEST 1 VIEW (PORTABLE) Stat Exams 10/24/18 14:37 Completed HEAD WITHOUT CONTRAST [CT] Stat Exams 10/24/18 14:37 Completed Assessment/Plan (1) History of closed head injury Current Visit: Yes Status: Chronic Code(s): Z87.820 - PERSONAL HISTORY OF TRAUMATIC BRAIN INJURY (2) Paresthesia and pain of right extremity Current Visit: Yes Status: Acute Assessment & Plan: xray c spine Code(s): M79.609 - PAIN IN UNSPECIFIED LIMB; R20.2 - PARESTHESIA OF SKIN (3) TIA (transient ischemic attack) Current Visit: Yes Status: Acute Assessment & Plan: continue neuro checks overnight Code(s): G45.9 - TRANSIENT CEREBRAL ISCHEMIC ATTACK, UNSPECIFIED
[2018-10-25 03:30] LABS: BASOPHIL % 0.6 % (0.0-0.4); Basophil (Absolute #) 0.04 (0-0.4); Eosinophil % 3.7 % (0.00-5.0); Eosinophil (Absolute #) 0.23 (0-0.5); Granulocyte Absolute (ANC) 3.18 (1.4-6.9); Granulocytes % 50.6 % (36.0-66.0); Hematocrit 38.5 % (35-47); Hemoglobin 12.8 gm/dl (12.0-16.0); Lymphocyte (Absolute #) 2.22 (1.0-4.6); Lymphocytes % 35.4 % (24.0-44.0); Mean Cell Volume 90.2 fl (78-100); Mean Corpuscular Hgb Concent. 33.2 g/dl (32-36); Mean Platelet Volume 10.5 fl (6-9.5); Monocyte (Absolute #) 0.61 (0.0-1.3); Monocytes % 9.7 % (0.0-12.0); Platelet Count 213 K/mm3 (150-450); Red Blood Count 4.27 M/mm3 (4.1-5.4); White Blood Count 6.3 K/mm3 (4.0-10.5)
[2018-10-25 03:40] LABS: ALBUMIN 3.7 g/dL (3.5-5.0); ANION GAP 11.3 MEQ/L (5-15); BILIRUBIN,TOTAL 0.4 mg/dL (0.2-1.3); Calcium 9.6 mg/dL (8.4-10.2); Creatinine 1 1.02 mg/dL (0.52-1.04); Total Protein 6.5 g/dL (6.3-8.2)
--- NOTE | 2018-10-25 08:39 | XRAY ---
Indication: Right arm numbness. Comparison: CT cervical spine October 10, 2016. 3 views of the cervical spine unchanged again demonstrating osteopenia, multilevel bilateral degenerative facet arthropathy, minimal multilevel endplate spurring, and minimal grade 1 anterolisthesis of C4 on C5 on C6. Patient again edentulous. No new/acute findings.
--- NOTE | 2018-10-25 08:46 | PCM.DCORD ---
- Discharge Discharge Date: 10/25/18 Disposition: Home, Self-Care Condition: Fair Prescriptions: New Clopidogrel Bisulfate 75 mg [PLAVIX 75 MG Tablet] 75 mg PO DAILY #30 tablet Continue Levothyroxine Sodium 25 Mcg [Synthroid 25 Mcg] 25 mcg PO DAILY Aspirin 81 mg PO DAILY Cholecalciferol (Vitamin D3) [Vitamin D] 1,000 unit PO WEEKLY Dextran 70/Hypromellose [Artificial Tears Eye Drops] 15 ml OP QID PRN PRN PRN Reason: Allergies [place]-3/Dha/Epa/Fish Oil [Fish Oil 1,600 mg/5 ml Liquid] 5 ml PO DAILY Follow up with: ADELINA KUO [Primary Care Provider] - 1 Week
--- NOTE | 2018-10-25 09:06 | SSS ---
DISCHARGE DIAGNOSIS: TRANSIENT ISCHEMIC ATTACK. HISTORY: The patient is an 87 year-old white female who apparently had sensation of not being able to feel her right arm or right leg although she had no motor trouble. She reports this began about noon but is rambling in her story and unable to tell me when the problem resolved. She is sitting there eating her breakfast and using her right arm completely normally at this time. She has also been able to be up to the bathroom without assistance. PAST MEDICAL/SURGICAL HISTORY: Significant for cholesteatoma being removed. She reports there has been some hearing difficulties in her left ear. She has problems with irritable bowel and she had eye cataract implants. She had leg fracture previously. HOME MEDICATIONS: Currently include levothyroxine 25 mcg daily, aspirin 81 mg a day, vitamin D weekly, artificial tears, omega-3 capsules. ALLERGIES: SHE HAS A LONG LIST OF ALLERGIES. CHLORPHENIRAMINE, CLARINEX, ERYTHROMYCIN, PENICILLIN, PHENOBARBITAL, PREDNISONE, PROCAINE, PSEUDOEPHEDRINE, SULFA. PHYSICAL EXAMINATION: The patient's vital signs on admission showed temperature 98.1F, pulse 68, respiratory rate 16, blood pressure 182/75. O2 saturation 96%. HEENT: Normocephalic, atraumatic. Pupils equal round reactive to light. Extraocular movements intact. Oropharynx is pink and moist. There is no evidence of any facial drooping. NECK: Supple without lymphadenopathy, thyromegaly or JVD. CHEST: Clear to auscultation. HEART: Regular rate and rhythm without murmurs, rubs or gallops. ABDOMEN: Soft. No palpable masses. EXTREMITIES: Without cyanosis, clubbing or edema. NEUROLOGIC: The patient is alert and oriented x3 although she rambles on her story. She seems to understand things for the most part. LAB DATA AND TESTS: CT scan showed no acute process. Her chest x-ray was within normal limits. She had metabolic panel show glucose 84, BUN 25, creatinine 1.02. Electrolytes normal. Liver enzymes normal. CBC showed white blood cell count 6,300, hemoglobin 12.8, PLT count 213,000. Troponins on multiple occasions have been less than 0.012. UA was within normal limits with specific gravity 1.012. International normalized ratio was 1.01. HOSPITAL COURSE: The patient had been admitted to the [facility] for observation. She has been normal neurologically since her evaluation other than her mild confusion. We will obtain carotid Doppler study prior to discharge. She had initially been placed on aspirin 325 mg a day but I see no reason not to put her on Plavix at 75 mg a day and change the aspirin back to 81 mg a day. The patient does report she has gastroesophageal reflux disease and this is likely to be much worse with the aspirin. She will have follow up with the nurse practitioner whom she sees routinely in our office in the next week with possible neurology evaluation as an outpatient.
[2018-10-25] MEDS ORDERED: FISH OIL PO SCH (10:00)
[2018-10-25] MEDS ORDERED: ECOTRIN 81 MG PO SCH (10:00)
[2018-10-25] MEDS ORDERED: EPA PO SCH (10:00)
[2018-10-25] MEDS ORDERED: OMEGA PO SCH (10:00)
[2018-10-25] MEDS ORDERED: ASPIRIN PO SCH (10:00)
[2018-10-25] MEDS ORDERED: DHA PO SCH (10:00)
--- NOTE | 2018-10-25 10:22 | XRAY ---
Indication: TIA. Two-dimensional sonogram and color Doppler imaging of the carotid arteries of the neck performed. Comparison: None Examination of the right carotid circulation demonstrates tortuous proximal common carotid artery. Very minimal heterogeneous plaquing in the distal common carotid artery. Normal antegrade vertebral artery flow. Examination of the left carotid circulation demonstrates tortuous mid common carotid artery. Minimal heterogeneous plaquing in the distal common carotid artery solid extending into the origin of the internal carotid artery. Proximal external carotid artery appears tortuous. Normal antegrade vertebral artery flow. Impression: 1. Minimal plaquing in the distal right common carotid, distal left common carotid, and origin of the left internal carotid artery as detailed. Velocity measurements and ratios are negative for hemodynamically significant flow-limiting stenosis. 2. Incidental tortuous proximal right common carotid, mid left common carotid, and proximal left external carotid arteries.
[2018-10-25] MEDS: FISH OIL 1,000 MG CAPSULE PO SCH (10:24)
[2018-10-25] MEDS: SYNTHROID 25 MCG PO SCH (10:25)
[2018-10-25 11:46] VITALS: BP 153/65; PULSE 65; O2SAT 100
[2018-10-30] MEDS ORDERED: VITAMIN D PO SCH (10:00)
== END 2018-10-25 13:05 | disposition home or self-care (01) ==
LOC: ED 14:09 → MED SURG 16:12
PROVIDERS: ADMIT Family Medicine; ATTEND Family Medicine
DX: G45.9 Transient cerebral ischemic attack, unspecified (principal); R41.0 Disorientation, unspecified; M79.601 Pain in right arm; R20.2 Paresthesia of skin; Z79.01 Long term (current) use of anticoagulants; Z79.82 Long term (current) use of aspirin; Z79.899 Other long term (current) drug therapy
CPT/HCPCS: 36000; 36415; 70450; 71045; 72040; 80048; 80053; 81001; 84484; 85025; 85610; 85730; 93005; 93041; 93268; 93880; 94762; 99285; G0378; A9270-GY

== ENCOUNTER 2018-11-16 14:15 | Observation (INO) | payer MEDICARE, OTHER ==
--- NOTE | 2018-11-16 14:51 | XRAY ---
Indication: Numbness. Slurred speech. Multiple contiguous axial images obtained through the head without contrast. Comparison: October 24, 2018. Stable age-appropriate global atrophy and minimal periventricular degenerative micro-ischemia bilaterally. Again no acute intracranial hemorrhage, abnormal extra-axial fluid collection, or mass effect. Fourth ventricle is midline without hydrocephalus. Wu-white matter differentiation preserved. Bony calvarium intact. Again left mastoidectomy with opacification of both mastoid air cells. Visualized paranasal sinuses are clear. Impression: Stable nonacute senile brain with chronic features. CT DI 69.79
[2018-11-16 14:52] LABS: BASOPHIL % 0.4 % (0.0-0.4); Basophil (Absolute #) 0.03 (0-0.4); Eosinophil (Absolute #) 0.22 (0-0.5); Granulocyte Absolute (ANC) 4.35 (1.4-6.9); Hematocrit 38.3 % (35-47); Hemoglobin 12.8 gm/dl (12.0-16.0); Lymphocyte (Absolute #) 1.97 (1.0-4.6); Lymphocytes % 26.7 % (24.0-44.0); Mean Cell Volume 89.9 fl (78-100); Mean Corpuscular Hgb Concent. 33.4 g/dl (32-36); Mean Platelet Volume 10.8 fl (6-9.5); Monocytes % 10.9 % (0.0-12.0); Platelet Count 225 K/mm3 (150-450); Red Blood Count 4.26 M/mm3 (4.1-5.4); Red Cell Distribution Width 13.6 % (11.5-14.0); White Blood Count 7.4 K/mm3 (4.0-10.5)
--- NOTE | 2018-11-16 14:55 | ERPHSYRPT ---
- History of Present Illness Time Seen by Provider: 11/16/18 14:38 Source: patient, family Physician History: Pt started c/o left facial numbness and slurred speech at noon today, she became very anxious, called her daughter, and was rushed here. She states, her speech resolved, she is till c/o left facial numbness, no visual changes, focal weakness, no chest pain, SOB, dizziness, nausea, other complaints, except mild palpitation few hours ago, and resolved. She had similar complaints about 3weeks ago, she was seen here and sent to a Neurologist to [facility], and outpatient workup was completed. She takes Plavix and baby ASA daily. Timing/Duration: hour(s) (3), improved Severity: moderate Character of Deficits: altered sensation, impaired speech, Left Facial Deficits: no difficulties Baseline/Normal Cognition: alert oriented x 3 Current Cognition: alert oriented x 3 Baseline Gait: uses cane Associated Symptoms: paresthesia Allergies/Adverse Reactions: almond Allergy (Verified 11/16/18 14:56) chlorpheniramine [From Chlor-Trimeton] Allergy (Verified 11/16/18 14:56) desloratadine [From Clarinex-D 12 HOUR] Allergy (Verified 11/16/18 14:56) erythromycin base Allergy (Verified 11/16/18 14:56) nickel Allergy (Verified 11/16/18 14:56) penicillin G Allergy (Verified 11/16/18 14:56) phenobarbital Allergy (Verified 11/16/18 14:56) pistachio nut Allergy (Verified 11/16/18 14:56) prednisone Allergy (Verified 11/16/18 14:56) procaine HCl [From Novocain] Allergy (Verified 11/16/18 14:56) pseudoephedrine sulfate [From Clarinex-D 12 HOUR] Allergy (Verified 11/16/18 15: 00) Sulfa (Sulfonamide Antibiotics) Allergy (Verified 10/24/18 15:18) Home Medications: Levothyroxine Sodium 25 Mcg [Synthroid 25 Mcg] 25 mcg PO DAILY 07/27/13 [ History] Aspirin 81 mg PO DAILY 10/10/16 [History] Cholecalciferol (Vitamin D3) [Vitamin D] 1,000 unit PO WEEKLY 10/10/16 [ History] Dextran 70/Hypromellose [Artificial Tears Eye Drops] 15 ml OP QID PRN PRN [History] Hx Tetanus, Diphtheria Vaccination/Date Given: Yes Hx Influenza Vaccination/Date Given: No Hx Pneumococcal Vaccination/Date Given: No - Review of Systems Constitutional: No Symptoms Eyes: No Symptoms Ears, Nose, & Throat: No Symptoms Respiratory: No Symptoms Cardiac: Palpitations Abdominal/Gastrointestinal: No Symptoms Genitourinary Symptoms: No Symptoms Musculoskeletal: No Symptoms Skin: No Symptoms Neurological: Parasthesia, Speech Changes (resolved), Other (left facial numbness, improved) All Other Systems: Reviewed and Negative - Past Medical History Pertinent Past Medical History: Yes Neurological History: No Pertinent History ENT History: Cataracts Cardiac History: No Pertinent History Respiratory History: No Pertinent History Endocrine Medical History: Hypothyroidism Musculoskeletal History: Fractures GI Medical History: Irritable Bowel History: No Pertinent History Psycho-Social History: No Pertinent History Female Reproductive Disorders: No Pertinent History Other Medical History: slight [place]--lt ear worse - Past Surgical History Past Surgical History: Yes Neuro Surgical History: No Pertinent History Cardiac: No Pertinent History Respiratory: No Pertinent History Gastrointestinal: No Pertinent History Genitourinary: No Pertinent History Musculoskeletal: Orthopedic Surgery Female Surgical History: No Pertinent History Other Surgical History: ear. eye implants. tibia/fibia - Social History Smoking Status: Current every day smoker Exposure to second hand smoke: No Drug Use: none Patient Lives Alone: No - Nursing Vital Signs Nursing Vital Signs: Initial Vital Signs Pulse Rate 66 11/16/18 15:17 Respiratory Rate 16 11/16/18 15:17 Blood Pressure 182/78 11/16/18 15:17 O2 Sat by Pulse Oximetry 69 L 11/16/18 15:17 Pain Scale Pain Intensity 0 - Delfin Coma Scale Best Eye Response ([place]): (4) open spontaneously Best Verbal Response ([place]elf[place]): (5) oriented Best Motor Response ([place]): (6) obeys commands [place] Total: 15 - Physical Exam General Appearance: no apparent distress Eye Exam: bilateral eye: PERRL, EOMI Ears, Nose, Throat Exam: normal ENT inspection, pharynx normal, moist mucous membranes Neck Exam: normal inspection, non-tender, supple, No carotid bruit, No JVD Respiratory: normal breath sounds, lungs clear, airway intact Cardiovascular: regular rate/rhythm, normal heart sounds, normal peripheral pulses, No murmur Gastrointestinal: soft, normal bowel sounds, No tenderness Back Exam: normal inspection, No CVA tenderness, No vertebral tenderness Extremity Exam: normal inspection, No pedal edema Peripheral Pulses: carotid (R): 2+, carotid (L): 2+, dorsalis-pedis (R): 2+, dorsalis-pedis (L): 2+ Mental Status: alert, oriented x 3, 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 Exam: normal speech, tongue midline, No facial asymmetry, No facial droop, No facial weakness Coordination/Gait: normal finger to nose Motor/Sensory: no motor deficit, no sensory deficit DTR: bicep (R): 2+, bicep (L): 2+, knee (R): 2+, knee (L): 2+, ankle (R): 2+, ankle (L): 2+ Skin Exam: normal color, warm, dry, No rash, No petechiae, No cyanosis, No diaphoresis SpO2 Interpretation: normal O2 Delivery: Room Air - Course Nursing assessment & vital signs reviewed: Yes EKG Interpreted by Me: RATE ([id number]), Left [place] Deviation, NORMAL INTERVALS, NORMAL QRS, Non-specific ST Changes - CT Exams Head CT Interpretation: Negative, Tele-radiologist Report Ordered Tests: Active Orders 24 hr Category Date Time Status Aml Analyst STAT Care 11/16/18 14:46 Active EKG-ER Only STAT Care 11/16/18 14:46 Active IV Insertion STAT Care 11/16/18 14:46 Active HEAD WITHOUT CONTRAST [CT] Stat Exams 11/16/18 14:26 Completed CBC W DIFF Stat Lab 11/16/18 14:46 Completed CK-Creatinine Phosphokinase Stat Lab 11/16/18 14:46 Completed CMP Stat Lab 11/16/18 14:46 Completed Erythrocyte Sedimentation Rate Stat Lab 11/16/18 14:47 Completed PROTIME WITH INR Stat Lab 11/16/18 14:46 Completed PTT Stat Lab 11/16/18 14:46 Completed TROPONIN Q3H Lab 11/16/18 15:00 Completed TROPONIN Q3H Lab 11/16/18 18:00 Ordered TROPONIN Q3H Lab 11/16/18 21:00 Ordered TROPONIN Q3H Lab 11/17/18 00:00 Ordered TROPONIN Q3H Lab 11/17/18 03:00 Ordered UA W/RFX UR CULTURE Stat Lab 11/16/18 16:00 Completed Medication Summary Generic Name Dose Route Start Last Admin Trade Name Marcus PRN Reason Stop Dose Admin Sodium Chloride 1,000 mls @ 100 mls/hr 11/16/18 17:15 Sodium Chloride 0.9% 1000 Ml IV 12/16/18 17:14 .Q10H REYNALDO Lab/Rad Data: Laboratory Result Diagrams 11/16/18 14:46 11/16/18 14:46 Laboratory Results 11/16/18 11/16/18 11/16/18 Range/Units 16:00 15:00 14:47 WBC (4.0-10.5) K/mm3 RBC (4.1-5.4) M/mm3 Hgb (12.0-16.0) gm/dl Hct (35-47) % MCV (78-100) fl MCH (26-32) pg MCHC (32-36) g/dl RDW (11.5-14.0) % Plt Count (150-450) K/mm3 MPV (6-9.5) fl Gran % (36.0-66.0) % Eos # (Auto) (0-0.5) Absolute Lymphs (auto) (1.0-4.6) Absolute Monos (auto) (0.0-1.3) Lymphocytes % (24.0-44.0) % Monocytes % (0.0-12.0) % Eosinophils % (0.00-5.0) % Basophils % (0.0-0.4) % Absolute Granulocytes (1.4-6.9) Basophils # (0-0.4) ESR 7 (0-20) mm/hr PT (9.95-12.35) SECONDS INR (0.8-3.0) APTT (25.3-37.0) SECONDS Sodium (137-145) mmol/L Potassium (3.5-5.1) mmol/L Chloride (98-107) mmol/L Carbon Dioxide (22-30) mmol/L Anion Gap (5-15) MEQ/L BUN (7-17) mg/dL Creatinine (0.52-1.04) mg/dL Estimated GFR ML/MIN Glucose (74-106) mg/dL Calcium (8.4-10.2) mg/dL Total Bilirubin (0.2-1.3) mg/dL AST (14-36) U/L ALT (0-35) U/L Alkaline Phosphatase (38-126) U/L Creatine Kinase (30-135) U/L Troponin I < 0.012 (0.000-0.034) ng/mL Serum Total Protein (6.3-8.2) g/dL Albumin (3.5-5.0) g/dL Urine Color STRAW (YELLOW) Urine Appearance CLEAR (CLEAR) Urine pH 7.0 (5-6) Ur Specific [place] 1.006 (1.005-1.025) Urine Protein NEGATIVE (Negative) Urine Ketones NEGATIVE (NEGATIVE) Urine Blood NEGATIVE (0-5) Uche/ul Urine Nitrite NEGATIVE (NEGATIVE) Urine Bilirubin NEGATIVE (NEGATIVE) Urine Urobilinogen NEGATIVE (0-1) mg/dL Ur Leukocyte Esterase NEGATIVE (NEGATIVE) Urine WBC (Auto) NONE (0-5) /HPF Urine RBC (Auto) NONE (0-2) /HPF U Epithel Cells (Auto) NONE (FEW) /HPF Urine Bacteria (Auto) NONE (NEGATIVE) /HPF Urine Culture Reflexed NO (NO) Urine Glucose NEGATIVE (NEGATIVE) mg/dL 11/16/18 11/16/18 11/16/18 Range/Units 14:46 14:46 14:46 WBC 7.4 (4.0-10.5) K/mm3 RBC 4.26 (4.1-5.4) M/mm3 Hgb 12.8 (12.0-16.0) gm/dl Hct 38.3 (35-47) % MCV 89.9 (78-100) fl MCH 30.0 (26-32) pg MCHC 33.4 (32-36) g/dl RDW 13.6 (11.5-14.0) % Plt Count 225 (150-450) K/mm3 MPV 10.8 H (6-9.5) fl Gran % 59.0 (36.0-66.0) % Eos # (Auto) 0.22 (0-0.5) Absolute Lymphs (auto) 1.97 (1.0-4.6) Absolute Monos (auto) 0.80 (0.0-1.3) Lymphocytes % 26.7 (24.0-44.0) % Monocytes % 10.9 (0.0-12.0) % Eosinophils % 3.0 (0.00-5.0) % Basophils % 0.4 (0.0-0.4) % Absolute Granulocytes 4.35 (1.4-6.9) Basophils # 0.03 (0-0.4) ESR (0-20) mm/hr PT 12.2 (9.95-12.35) SECONDS INR 1.08 (0.8-3.0) APTT 40.8 H (25.3-37.0) SECONDS Sodium 133 L (137-145) mmol/L Potassium 4.4 (3.5-5.1) mmol/L Chloride 98 (98-107) mmol/L Carbon Dioxide 23 (22-30) mmol/L Anion Gap 16.2 H (5-15) MEQ/L BUN 22 H (7-17) mg/dL Creatinine 1.01 (0.52-1.04) mg/dL Estimated GFR 54.9 ML/MIN Glucose 81 (74-106) mg/dL Calcium 9.3 (8.4-10.2) mg/dL Total Bilirubin 0.50 (0.2-1.3) mg/dL AST 25 (14-36) U/L ALT 17 (0-35) U/L Alkaline Phosphatase 44 (38-126) U/L Creatine Kinase 28 L (30-135) U/L Troponin I (0.000-0.034) ng/mL Serum Total Protein 7.2 (6.3-8.2) g/dL Albumin 4.3 (3.5-5.0) g/dL Urine Color (YELLOW) Urine Appearance (CLEAR) Urine pH (5-6) Ur Specific [place] (1.005-1.025) Urine Protein (Negative) Urine Ketones (NEGATIVE) Urine Blood (0-5) Uche/ul Urine Nitrite (NEGATIVE) Urine Bilirubin (NEGATIVE) Urine Urobilinogen (0-1) mg/dL Ur Leukocyte Esterase (NEGATIVE) Urine WBC (Auto) (0-5) /HPF Urine RBC (Auto) (0-2) /HPF U Epithel Cells (Auto) (FEW) /HPF Urine Bacteria (Auto) (NEGATIVE) /HPF Urine Culture Reflexed (NO) Urine Glucose (NEGATIVE) mg/dL - Progress Progress: improved Progress Note: 11/16/18 17:19 Pt denies headaches, or palpitations, she is asymptomatic, stable, reviewed her results, and discussed with Dr Carroll, he agreed to admit her for observation, patient was informed and agreed. 11/16/18 17:20 She was started on 325 mg ASA. Discussed with : Glen Will see patient in: hospital (observation) Counseled pt/family regarding: lab results, diagnosis, rad results - Departure Departure Disposition: Observation Clinical Impression: TIA (transient ischemic attack) Condition: Good Critical Care Time: No Referrals: ADELINA KUO [Primary Care Provider] - Instructions: Transient Ischemic Attack
[2018-11-16 15:03] LABS: ALBUMIN 4.3 g/dL (3.5-5.0); ANION GAP 16.2 MEQ/L (5-15); BILIRUBIN,TOTAL 0.5 mg/dL (0.2-1.3); Calcium 9.3 mg/dL (8.4-10.2); Creatinine 1 1.01 mg/dL (0.52-1.04); Potassium 4.4 mmol/L (3.5-5.1); Total Protein 7.2 g/dL (6.3-8.2)
[2018-11-16 15:06] LABS: INR 1.08 (0.8-3.0); PROTIME 12.2 SECONDS (9.95-12.35)
[2018-11-16 15:09] LABS: PTT 40.8 SECONDS (25.3-37.0)
[2018-11-16 16:10] LABS: Appearance CLEAR (CLEAR); Bilirubin NEGATIVE (NEGATIVE); Blood NEGATIVE Ery/ul (0-5); Glucose NEGATIVE (NEGATIVE); Ketones NEGATIVE (NEGATIVE); Leukocyte Esterase NEGATIVE (NEGATIVE); Nitrite NEGATIVE (NEGATIVE); Protein,Urine Dip NEGATIVE (Negative); Specific Gravity 1.006 (1.005-1.025); Urobilinogen NEGATIVE mg/dL (0-1)
[2018-11-16] MEDS ORDERED: Sodium Chloride 0.9% 1000 ML 1,000 ML IV SCH (17:15)
[2018-11-16] MEDS: Sodium Chloride 0.9% 1000 ML 1,000 ML IV SCH (18:23)
[2018-11-16] MEDS ORDERED: DULCOLAX 5 MG PO PRN (19:40)
[2018-11-16] MEDS: APRESOLINE 20 MG/ML INJ IV PRN (19:49)
[2018-11-16] MEDS ORDERED: xanAX 0.25 MG PO SCH (21:00)
[2018-11-17] MEDS: TYLENOL 325 MG PO PRN ×2 (03:40→08:51)
[2018-11-17] MEDS: Sodium Chloride 0.9% 1000 ML 1,000 ML IV SCH ×2 (03:40→13:49)
[2018-11-17 04:44] LABS: BASOPHIL % 0.5 % (0.0-0.4); Basophil (Absolute #) 0.03 (0-0.4); Eosinophil % 5.5 % (0.00-5.0); Eosinophil (Absolute #) 0.31 (0-0.5); Granulocyte Absolute (ANC) 2.78 (1.4-6.9); Granulocytes % 49.1 % (36.0-66.0); Hematocrit 37.3 % (35-47); Hemoglobin 12.3 gm/dl (12.0-16.0); Lymphocyte (Absolute #) 1.85 (1.0-4.6); Lymphocytes % 32.6 % (24.0-44.0); Mean Platelet Volume 11.5 fl (6-9.5); Monocytes % 12.3 % (0.0-12.0); Platelet Count 150 K/mm3 (150-450); Red Cell Distribution Width 13.4 % (11.5-14.0); White Blood Count 5.7 K/mm3 (4.0-10.5)
[2018-11-17 05:00] LABS: ALBUMIN 3.3 g/dL (3.5-5.0); ALKALINE PHOSPHATASE 40 U/L (38-126); ANION GAP 11.6 MEQ/L (5-15); BLOOD UREA NITROGEN 16 mg/dL (7-17); CHLORIDE 103 mmol/L (98-107); Calcium 8.8 mg/dL (8.4-10.2); Carbon Dioxide 25 mmol/L (22-30); Creatinine 1 0.85 mg/dL (0.52-1.04); Glucose 82 mg/dL (74-106); Potassium 3.9 mmol/L (3.5-5.1); SGOT/AST 21 U/L (14-36); SGPT/ALT 14 U/L (0-35); SODIUM 136 mmol/L (137-145); Total Protein 5.9 g/dL (6.3-8.2)
[2018-11-17 06:40] LABS: Slide Review 1 YES
[2018-11-17] MEDS ORDERED: xanAX 0.25 MG PO PRN (07:15)
--- NOTE | 2018-11-17 12:30 | PCM.HP ---
History of Present Illness - Chief Complaint Chief Complaint: TIA History of Present Illness: is a 88 year old female who apparently had a recent TIA and has seen Dr Joseph, she reported to the ER with numbness of her face and difficulty sleeping similar to previous episode. She was hypertensive which is unusual for her as well, she is on aspirin and plavix, reports she had an echo and holter this week and awaiting results from Dr Joseph, she is feeling better this morning, no focal symptoms and facial numbness has resolved. - Review of Systems Constitutional: No Fever, No Chills Respiratory: No Cough, No Short Of Breath Cardiac: No Chest Pain, No Edema, No Syncope Abdominal/Gastrointestinal: No Abdominal Pain, No Nausea, No Vomiting, No Diarrhea Genitourinary Symptoms: No Dysuria Neurological: Sensory Changes, Speech Changes, No Dizziness, No Focal Weakness, No Gait Changes, No Headache, No Paralysis, No Seizure All Other Systems: Reviewed and Negative Medications & Allergies Home Medications: Home Medication List Levothyroxine Sodium 25 Mcg [Synthroid 25 Mcg] 25 mcg PO 1600 07/27/13 [ History Confirmed 11/16/18] Aspirin 81 mg PO DAILY 10/10/16 [History Confirmed 11/16/18] Cholecalciferol (Vitamin D3) [Vitamin D] 1,000 unit PO WEEKLY 10/10/16 [ History Confirmed 11/16/18] Dextran 70/Hypromellose [Artificial Tears Eye Drops] 15 ml OP QID PRN PRN [History Confirmed 11/16/18] Clopidogrel Bisulfate 75 mg [PLAVIX 75 MG Tablet] 75 mg PO DAILY #30 tablet 10/25/18 [Rx Confirmed 11/16/18] Allergies/Adverse Reactions: Allergies Allergy/AdvReac Type Severity Reaction Status Date / Time almond Allergy Verified 11/16/18 14:56 chlorpheniramine Allergy Verified 11/16/18 14:56 [From Chlor-Trimeton] desloratadine Allergy Verified 11/16/18 14:56 [From Clarinex-D 12 HOUR] erythromycin base Allergy Verified 11/16/18 14:56 nickel Allergy Verified 11/16/18 14:56 penicillin G Allergy Verified 11/16/18 14:56 phenobarbital Allergy Verified 11/16/18 14:56 pistachio nut Allergy Verified 11/16/18 14:56 prednisone Allergy Verified 11/16/18 14:56 procaine HCl [From Novocain] Allergy Verified 11/16/18 14:56 pseudoephedrine sulfate Allergy Verified 11/16/18 15:00 [From Clarinex-D 12 HOUR] Sulfa (Sulfonamide Allergy Verified 10/24/18 15:18 Antibiotics) - Past Medical History Past Medical History: Yes Neurological History: No Pertinent History ENT History: Cataracts Cardiac History: No Pertinent History Respiratory History: No Pertinent History Endocrine Medical History: Hypothyroidism Musculoskelatal History: Fractures GI Medical History: Irritable Bowel History: No Pertinent History Pyscho-Social History: No Pertinent History Reproductive Disorders: No Pertinent History Comment: slight [place]--lt ear worse - Female History Hx Last Menstrual Period: post Are you now?: No - Past Surgical History Past Surgical History: Yes Neuro Surgical History: No Pertinent History Cardiac History: No Pertinent History Respiratory Surgery: No Pertinent History GI Surgical History: No Pertinent History Genitourinary Surgical Hx: No Pertinent History Musculskeletal Surgical Hx: Orthopedic Surgery Female Surgical History: No Pertinent History Other Surgical History: ear l. eye implants. tibia/fibia - Social History Smoking Status: Never smoker Exposure to second hand smoke: No Alcohol: None Drug Use: none - Physical Exam Vital Signs: Vital Signs - 24 hr Temp Pulse Resp BP Pulse Ox 11/17/18 11:23 98 F 70 18 130/60 97 11/17/18 07:37 97.6 F 65 18 127/56 96 11/17/18 04:00 98.2 F 68 16 146/71 96 11/17/18 00:00 98.3 F 69 15 111/52 95 11/16/18 20:00 65 197/81 11/16/18 18:32 97.7 F 63 16 183/81 11/16/18 16:05 78 16 188/80 98 11/16/18 15:17 66 16 182/78 69 L General Appearance: no apparent distress, alert Neurologic Exam: alert, oriented x 3, cooperative, normal mood/affect, nml cerebellar function, nml station & gait, sensation nml, No motor deficits Eye Exam: PERRL/EOMI, eyes nml inspection Respiratory Exam: normal breath sounds, lungs clear, No respiratory distress Cardiovascular Exam: regular rate/rhythm, normal heart sounds, normal peripheral pulses Gastrointestinal/Abdomen Exam: soft, normal bowel sounds, No tenderness, No mass Extremity Exam: normal inspection, normal range of motion, pelvis stable Skin Exam: normal color, warm, dry, No rash Results - Labs Lab/Micro Results: Lab Results-Last 24 Hours 11/16/18 11/16/18 11/16/18 Range/Units 14:46 14:46 14:46 WBC 7.4 (4.0-10.5) K/mm3 RBC 4.26 (4.1-5.4) M/mm3 Hgb 12.8 (12.0-16.0) gm/dl Hct 38.3 (35-47) % MCV 89.9 (78-100) fl MCH 30.0 (26-32) pg MCHC 33.4 (32-36) g/dl RDW 13.6 (11.5-14.0) % Plt Count 225 (150-450) K/mm3 MPV 10.8 H (6-9.5) fl Gran % 59.0 (36.0-66.0) % Eos # (Auto) 0.22 (0-0.5) Absolute Lymphs (auto) 1.97 (1.0-4.6) Absolute Monos (auto) 0.80 (0.0-1.3) Lymphocytes % 26.7 (24.0-44.0) % Monocytes % 10.9 (0.0-12.0) % Eosinophils % 3.0 (0.00-5.0) % Basophils % 0.4 (0.0-0.4) % Absolute Granulocytes 4.35 (1.4-6.9) Basophils # 0.03 (0-0.4) ESR (0-20) mm/hr PT 12.2 (9.95-12.35) SECONDS INR 1.08 (0.8-3.0) APTT 40.8 H (25.3-37.0) SECONDS Sodium 133 L (137-145) mmol/L Potassium 4.4 (3.5-5.1) mmol/L Chloride 98 (98-107) mmol/L Carbon Dioxide 23 (22-30) mmol/L Anion Gap 16.2 H (5-15) MEQ/L BUN 22 H (7-17) mg/dL Creatinine 1.01 (0.52-1.04) mg/dL Estimated GFR 54.9 ML/MIN Glucose 81 (74-106) mg/dL Calcium 9.3 (8.4-10.2) mg/dL Total Bilirubin 0.50 (0.2-1.3) mg/dL AST 25 (14-36) U/L ALT 17 (0-35) U/L Alkaline Phosphatase 44 (38-126) U/L Creatine Kinase 28 L (30-135) U/L Troponin I (0.000-0.034) ng/mL Serum Total Protein 7.2 (6.3-8.2) g/dL Albumin 4.3 (3.5-5.0) g/dL Urine Color (YELLOW) Urine Appearance (CLEAR) Urine pH (5-6) Ur Specific [place] (1.005-1.025) Urine Protein (Negative) Urine Ketones (NEGATIVE) Urine Blood (0-5) Uche/ul Urine Nitrite (NEGATIVE) Urine Bilirubin (NEGATIVE) Urine Urobilinogen (0-1) mg/dL Ur Leukocyte Esterase (NEGATIVE) Urine WBC (Auto) (0-5) /HPF Urine RBC (Auto) (0-2) /HPF U Epithel Cells (Auto) (FEW) /HPF Urine Bacteria (Auto) (NEGATIVE) /HPF Urine Culture Reflexed (NO) Urine Glucose (NEGATIVE) mg/dL Slides for Path Review 11/16/18 11/16/18 11/16/18 Range/Units 14:47 15:00 16:00 WBC (4.0-10.5) K/mm3 RBC (4.1-5.4) M/mm3 Hgb (12.0-16.0) gm/dl Hct (35-47) % MCV (78-100) fl MCH (26-32) pg MCHC (32-36) g/dl RDW (11.5-14.0) % Plt Count (150-450) K/mm3 MPV (6-9.5) fl Gran % (36.0-66.0) % Eos # (Auto) (0-0.5) Absolute Lymphs (auto) (1.0-4.6) Absolute Monos (auto) (0.0-1.3) Lymphocytes % (24.0-44.0) % Monocytes % (0.0-12.0) % Eosinophils % (0.00-5.0) % Basophils % (0.0-0.4) % Absolute Granulocytes (1.4-6.9) Basophils # (0-0.4) ESR 7 (0-20) mm/hr PT (9.95-12.35) SECONDS INR (0.8-3.0) APTT (25.3-37.0) SECONDS Sodium (137-145) mmol/L Potassium (3.5-5.1) mmol/L Chloride (98-107) mmol/L Carbon Dioxide (22-30) mmol/L Anion Gap (5-15) MEQ/L BUN (7-17) mg/dL Creatinine (0.52-1.04) mg/dL Estimated GFR ML/MIN Glucose (74-106) mg/dL Calcium (8.4-10.2) mg/dL Total Bilirubin (0.2-1.3) mg/dL AST (14-36) U/L ALT (0-35) U/L Alkaline Phosphatase (38-126) U/L Creatine Kinase (30-135) U/L Troponin I < 0.012 (0.000-0.034) ng/mL Serum Total Protein (6.3-8.2) g/dL Albumin (3.5-5.0) g/dL Urine Color STRAW (YELLOW) Urine Appearance CLEAR (CLEAR) Urine pH 7.0 (5-6) Ur Specific [place] 1.006 (1.005-1.025) Urine Protein NEGATIVE (Negative) Urine Ketones NEGATIVE (NEGATIVE) Urine Blood NEGATIVE (0-5) Uche/ul Urine Nitrite NEGATIVE (NEGATIVE) Urine Bilirubin NEGATIVE (NEGATIVE) Urine Urobilinogen NEGATIVE (0-1) mg/dL Ur Leukocyte Esterase NEGATIVE (NEGATIVE) Urine WBC (Auto) NONE (0-5) /HPF Urine RBC (Auto) NONE (0-2) /HPF U Epithel Cells (Auto) NONE (FEW) /HPF Urine Bacteria (Auto) NONE (NEGATIVE) /HPF Urine Culture Reflexed NO (NO) Urine Glucose NEGATIVE (NEGATIVE) mg/dL Slides for Path Review 11/16/18 11/16/18 11/17/18 Range/Units 18:56 21:27 01:12 WBC (4.0-10.5) K/mm3 RBC (4.1-5.4) M/mm3 Hgb (12.0-16.0) gm/dl Hct (35-47) % MCV (78-100) fl MCH (26-32) pg MCHC (32-36) g/dl RDW (11.5-14.0) % Plt Count (150-450) K/mm3 MPV (6-9.5) fl Gran % (36.0-66.0) % Eos # (Auto) (0-0.5) Absolute Lymphs (auto) (1.0-4.6) Absolute Monos (auto) (0.0-1.3) Lymphocytes % (24.0-44.0) % Monocytes % (0.0-12.0) % Eosinophils % (0.00-5.0) % Basophils % (0.0-0.4) % Absolute Granulocytes (1.4-6.9) Basophils # (0-0.4) ESR (0-20) mm/hr PT (9.95-12.35) SECONDS INR (0.8-3.0) APTT (25.3-37.0) SECONDS Sodium (137-145) mmol/L Potassium (3.5-5.1) mmol/L Chloride (98-107) mmol/L Carbon Dioxide (22-30) mmol/L Anion Gap (5-15) MEQ/L BUN (7-17) mg/dL Creatinine (0.52-1.04) mg/dL Estimated GFR ML/MIN Glucose (74-106) mg/dL Calcium (8.4-10.2) mg/dL Total Bilirubin (0.2-1.3) mg/dL AST (14-36) U/L ALT (0-35) U/L Alkaline Phosphatase (38-126) U/L Creatine Kinase (30-135) U/L Troponin I < 0.012 < 0.012 < 0.012 (0.000-0.034) ng/mL Serum Total Protein (6.3-8.2) g/dL Albumin (3.5-5.0) g/dL Urine Color (YELLOW) Urine Appearance (CLEAR) Urine pH (5-6) Ur Specific [place] (1.005-1.025) Urine Protein (Negative) Urine Ketones (NEGATIVE) Urine Blood (0-5) Uche/ul Urine Nitrite (NEGATIVE) Urine Bilirubin (NEGATIVE) Urine Urobilinogen (0-1) mg/dL Ur Leukocyte Esterase (NEGATIVE) Urine WBC (Auto) (0-5) /HPF Urine RBC (Auto) (0-2) /HPF U Epithel Cells (Auto) (FEW) /HPF Urine Bacteria (Auto) (NEGATIVE) /HPF Urine Culture Reflexed (NO) Urine Glucose (NEGATIVE) mg/dL Slides for Path Review 11/17/18 11/17/18 11/17/18 Range/Units 04:43 04:43 04:43 WBC 5.7 (4.0-10.5) K/mm3 RBC 4.10 (4.1-5.4) M/mm3 Hgb 12.3 (12.0-16.0) gm/dl Hct 37.3 (35-47) % MCV 91.0 (78-100) fl MCH 30.0 (26-32) pg MCHC 33.0 (32-36) g/dl RDW 13.4 (11.5-14.0) % Plt Count 150 (150-450) K/mm3 MPV 11.5 H (6-9.5) fl Gran % 49.1 (36.0-66.0) % Eos # (Auto) 0.31 (0-0.5) Absolute Lymphs (auto) 1.85 (1.0-4.6) Absolute Monos (auto) 0.70 (0.0-1.3) Lymphocytes % 32.6 (24.0-44.0) % Monocytes % 12.3 H (0.0-12.0) % Eosinophils % 5.5 H (0.00-5.0) % Basophils % 0.5 (0.0-0.4) % Absolute Granulocytes 2.78 (1.4-6.9) Basophils # 0.03 (0-0.4) ESR (0-20) mm/hr PT (9.95-12.35) SECONDS INR (0.8-3.0) APTT (25.3-37.0) SECONDS Sodium 136 L (137-145) mmol/L Potassium 3.9 (3.5-5.1) mmol/L Chloride 103 (98-107) mmol/L Carbon Dioxide 25 (22-30) mmol/L Anion Gap 11.6 (5-15) MEQ/L BUN 16 (7-17) mg/dL Creatinine 0.85 (0.52-1.04) mg/dL Estimated GFR > 60.0 ML/MIN Glucose 82 (74-106) mg/dL Calcium 8.8 (8.4-10.2) mg/dL Total Bilirubin 0.50 (0.2-1.3) mg/dL AST 21 (14-36) U/L ALT 14 (0-35) U/L Alkaline Phosphatase 40 (38-126) U/L Creatine Kinase (30-135) U/L Troponin I < 0.012 (0.000-0.034) ng/mL Serum Total Protein 5.9 L (6.3-8.2) g/dL Albumin 3.3 L (3.5-5.0) g/dL Urine Color (YELLOW) Urine Appearance (CLEAR) Urine pH (5-6) Ur Specific [place] (1.005-1.025) Urine Protein (Negative) Urine Ketones (NEGATIVE) Urine Blood (0-5) Uche/ul Urine Nitrite (NEGATIVE) Urine Bilirubin (NEGATIVE) Urine Urobilinogen (0-1) mg/dL Ur Leukocyte Esterase (NEGATIVE) Urine WBC (Auto) (0-5) /HPF Urine RBC (Auto) (0-2) /HPF U Epithel Cells (Auto) (FEW) /HPF Urine Bacteria (Auto) (NEGATIVE) /HPF Urine Culture Reflexed (NO) Urine Glucose (NEGATIVE) mg/dL Slides for Path Review YES - Radiology Impressions Radiology Exams & Impressions: Radiology Procedures Category Date Time Status HEAD WITHOUT CONTRAST [CT] Stat Exams 11/16/18 14:26 Completed Assessment/Plan (1) TIA (transient ischemic attack) Current Visit: Yes Status: Acute Assessment & Plan: continue aspirin and plavix. holter reports reviewed, had 1 short atrial run, carotid nothing significant. echo not yet read. likely home tomorrow if symptoms do not recur and bp is stable. some symptoms might be related to anxiety Code(s): G45.9 - TRANSIENT CEREBRAL ISCHEMIC ATTACK, UNSPECIFIED (2) Essential (primary) hypertension Current Visit: Yes Status: Acute Code(s): I10 - ESSENTIAL (PRIMARY) HYPERTENSION
[2018-11-17] MEDS ORDERED: DEXTRAN OP PRN (14:18)
[2018-11-17] MEDS ORDERED: HYPROMELLOSE OP PRN (14:18)
[2018-11-17] MEDS ORDERED: Artificial Tears 15 ML OP PRN (14:21)
[2018-11-17] MEDS: ECOTRIN 81 MG PO SCH (14:41)
[2018-11-17] MEDS: PLAVIX 75 MG Tablet PO SCH (14:44)
[2018-11-17] MEDS ORDERED: SYNTHROID 25 MCG PO SCH (16:00)
[2018-11-17] MEDS ORDERED: Ecotrin 325 MG PO ONE (17:19)
[2018-11-17] MEDS: APRESOLINE 20 MG/ML INJ IV PRN (20:25)
[2018-11-18] MEDS: Sodium Chloride 0.9% 1000 ML 1,000 ML IV SCH (00:16)
[2018-11-18] MEDS: TYLENOL 325 MG PO PRN (09:13)
--- NOTE | 2018-11-18 09:48 | PCM.DS ---
Discharge Summary Date of Admission: 11/16/18 17:48 Admitting Physician: CARLOS ROSALES Primary Care Provider: ADELINA KUO Allergies Allergies almond Allergy (Verified 11/16/18 14:56) chlorpheniramine [From Chlor-Trimeton] Allergy (Verified 11/16/18 14:56) desloratadine [From Clarinex-D 12 HOUR] Allergy (Verified 11/16/18 14:56) erythromycin base Allergy (Verified 11/16/18 14:56) nickel Allergy (Verified 11/16/18 14:56) penicillin G Allergy (Verified 11/16/18 14:56) phenobarbital Allergy (Verified 11/16/18 14:56) pistachio nut Allergy (Verified 11/16/18 14:56) prednisone Allergy (Verified 11/16/18 14:56) procaine HCl [From Novocain] Allergy (Verified 11/16/18 14:56) pseudoephedrine sulfate [From Clarinex-D 12 HOUR] Allergy (Verified 11/16/18 15: 00) Sulfa (Sulfonamide Antibiotics) Allergy (Verified 10/24/18 15:18) Hospital Summary - Hospital Course Hospital Course: patient was admitted with tingling of facial region, has no problems or neuro deficits since arrival, testing has been negative. bp mildly elevated so will start meds at home - Vitals & Intake/Output Vital Signs: Vital Signs Temperature 97.5 F 11/18/18 08:00 Pulse Rate 73 11/18/18 08:00 Respiratory Rate 18 11/18/18 08:00 Blood Pressure 162/67 11/18/18 08:00 O2 Sat by Pulse Oximetry 100 11/18/18 08:00 Intake & Output: Intake & Output 11/15/18 11/16/18 11/17/18 11/18/18 11:59 11:59 11:59 11:59 Intake Total 1749 3811 Output Total 600 450 Balance 1149 3361 Weight 58.4 kg 58.4 kg - Lab Result Diagrams: 11/17/18 04:43 11/17/18 04:43 - Radiology Exams Ordered Rad Exams-Entire Visit: Radiology Procedures Category Date Time Status HEAD WITHOUT CONTRAST [CT] Stat Exams 11/16/18 14:26 Completed Discharge Exam General Appearance: no apparent distress, alert Neurologic Exam: alert Eye Exam: PERRL, EOMI, eyes nml inspection Respiratory Exam: normal breath sounds, lungs clear, No respiratory distress Cardiovascular Exam: regular rate/rhythm, normal heart sounds Gastrointestinal/Abdomen Exam: soft, No tenderness, No mass Extremity Exam: normal inspection, normal range of motion Skin Exam: normal color, warm, dry Final Diagnosis/Problem List - Final Discharge Diagnosis/Problem (1) TIA (transient ischemic attack) Current Visit: Yes Status: Acute Code(s): G45.9 - TRANSIENT CEREBRAL ISCHEMIC ATTACK, UNSPECIFIED (2) Essential (primary) hypertension Current Visit: Yes Status: Acute Code(s): I10 - ESSENTIAL (PRIMARY) HYPERTENSION - Discharge Disposition: Home, Self-Care Condition: Good Prescriptions: New Lisinopril 10 mg [Zestril 10 MG] 10 mg PO DAILY #30 tablet Continue Levothyroxine Sodium 25 Mcg [Synthroid 25 Mcg] 25 mcg PO 1600 Aspirin 81 mg PO DAILY Cholecalciferol (Vitamin D3) [Vitamin D] 1,000 unit PO WEEKLY Dextran 70/Hypromellose [Artificial Tears Eye Drops] 15 ml OP QID PRN PRN PRN Reason: Allergies Clopidogrel Bisulfate 75 mg [PLAVIX 75 MG Tablet] 75 mg PO DAILY #30 tablet Omeprazole 20 mg PO DAILY Follow up with: ADELINA KUO [Primary Care Provider] - 1 Week OBIE BLAND [CONSULTING PHYSICIAN] - 1 Week
[2018-11-18] MEDS ORDERED: NON-FORMULARY ITEM (Aspirin [Aspirin] 81 MG) PO SCH (10:00)
[2018-11-18] MEDS ORDERED: Protonix 40MG Tablet PO SCH (12:00)
[2018-11-18 12:12] VITALS: BP 133/59; PULSE 75; O2SAT 98
[2018-11-18] MEDS: ECOTRIN 81 MG PO SCH (13:23)
[2018-11-18] MEDS: PLAVIX 75 MG Tablet PO SCH (13:25)
== END 2018-11-18 14:00 | disposition home or self-care (01) ==
LOC: ED 14:15 → MED SURG 17:48
PROVIDERS: ADMIT Family Medicine; ATTEND Family Medicine
DX: G45.9 Transient cerebral ischemic attack, unspecified (principal); I10 Essential (primary) hypertension; Z79.01 Long term (current) use of anticoagulants; Z79.899 Other long term (current) drug therapy; Z79.82 Long term (current) use of aspirin
CPT/HCPCS: 36000; 36415; 70450; 80053; 81001; 82550; 84484; 85025; 85610; 85652; 85730; 93005; 93041; 93268; 99285; G0378; J0360; A9270-GY